=== PATIENT | male | born 1980 | race Caucasian/White ===

== ENCOUNTER 2021-10-31 20:13 | Emergency (ER) | payer BC ==
[2021-10-31 20:32] VITALS: BP 128/77; PULSE 78; TEMP 98; BMI 35.9
[2021-10-31] MEDS ORDERED: DEXAMETHASONE SOD PHOSPHATE 10 MG/1 ML VIAL IVPUSH ONE (20:51)
[2021-10-31] MEDS ORDERED: FAMOTIDINE 20 MG/50 ML IVPB 20 MG/50 ML MG IVPB ONE ×2 (20:52→21:04)
[2021-10-31] MEDS ORDERED: DEXAMETHASONE SOD PHOSPHATE 10 MG/1 ML VIAL ONE (21:03)
== END 2021-10-31 23:17 | disposition home or self-care (01) ==
LOC: JERFT 20:13 → JER 20:13 → JERFT 23:17
PROC: 3E033GC Introduction of Other Therapeutic Substance into Peripheral Vein, Percutaneous Approach (ICD-10-PCS; principal; 2021-10-31)
DX: T78.1XXA Other adverse food reactions, not elsewhere classified, initial encounter (principal)
CPT/HCPCS: 99284-25; J1100

== ENCOUNTER 2023-05-11 13:31 | Emergency (ER) | payer BC ==
[2023-05-11 14:08] VITALS: BP 157/91; PULSE 88; RESP 18; TEMP 98.7; BMI 42.7
[2023-05-11] MEDS ORDERED: ACETAMINOPHEN 500 MG TABLET (FP) PO ONE (16:23)
[2023-05-11 16:51] LABS: BASO % 0.4 % (0-2.0); EOS % 1.2 % (0-4.5); HEMATOCRIT 40.8 % (35.4-49); HEMOGLOBIN 13.8 GM/dL (11.7-16.9); LYMPH % 13.7 % (8-40); MCH 30.4 pg (25.7-33.7); MCHC 33.7 g/dl (32.0-35.9); MEAN PLT VOLUME 8.1 fl (7.5-11.1); MONO % 6.1 % (3.8-10.2); NEUT % 78.6 % (42.8-82.8); PLATELET COUNT 312 10^3/uL (134-434); RBC 4.53 M/mm3 (4.00-5.60); RDW 13.2 % (11.9-15.9); WHITE BLOOD COUNT 9.6 K/mm3 (4.0-10.0)
[2023-05-11 17:17] LABS: POTASSIUM 4.1 mmol/L (3.5-5.1)
[2023-05-11 17:19] LABS: BLOOD UREA NITROGEN 11.7 mg/dL (7-18); CALCIUM 9.7 mg/dL (8.5-10.1)
[2023-05-11 17:23] LABS: CREATININE 0.7 mg/dL (0.55-1.3)
[2023-05-11] MEDS ORDERED: ACETAMINOPHEN 500 MG TABLET (FP) ONE (19:00)
[2023-05-11] MEDS ORDERED: SULFAMETHOXAZOLE/TRIMETHOPRIM 800MG/160MG D.S. TABLET PO ONE (19:23)
[2023-05-11] MEDS ORDERED: CEFUROXIME AXETIL 500 MG TABLET PO ONE (19:42)
[2023-05-11] MEDS ORDERED: SULFAMETHOXAZOLE/TRIMETHOPRIM 800MG/160MG D.S. TABLET ONE (20:09)
== END 2023-05-11 20:15 | disposition home or self-care (01) ==
LOC: JERFT 13:31
DX: L03.213 Periorbital cellulitis (principal)
CPT/HCPCS: 36415; 70481-TC; 80048; 85025; 99285-25